=== PATIENT | male | born 1980 | race Caucasian/White ===

== ENCOUNTER 2020-02-23 21:23 | Emergency (ER) | payer MEDICAID, SELFPAY ==
[~2020-02-23] VITALS: Ht 170.2 cm; Wt 80.7 kg
[2020-02-23 21:39] VITALS: Ht 170.2 cm; Wt 80.7 kg
[2020-02-23 23:11] LABS: BASOPHIL % 0.9 % (0-2); PLATELET COUNT 221 x10^3mcL (130-400); RED CELL DISTRIBUTION WIDTH 12.6 % (11.5-14.5)
[2020-02-23 23:16] LABS: CALCIUM 8.5 mg/dL (8.5-10.1); CARBON DIOXIDE 24.6 mmol/L (21-32); CHLORIDE SERUM 106 mmol/L (98-107); CREATININE SERUM 1.1 mg/dL (0.7-1.3); GFR1 > 60 mL/min; GLUCOSE SERUM 105 mg/dL (74-106); POTASSIUM SERUM 4.1 mmol/L (3.5-5.1); SODIUM SERUM 140 mmol/L (136-145)
[2020-02-23 23:19] LABS: ALBUMIN 3.7 g/dL (3.4-5.0); ALKALINE PHOSPHATASE 61 U/L (46-116); ALT/SGPT 32 U/L (16-63); AST/SGOT 17 U/L (15-37); BILIRUBIN TOTAL 0.59 mg/dL (0.20-1.00); TOTAL PROTEIN, SERUM 6.9 g/dL (6.4-8.2)
[2020-02-24 00:27] VITALS: BP 106/58
== END 2020-02-24 00:27 | disposition home or self-care (01) ==
LOC: ED 21:23
PROVIDERS: Emergency Medicine
DX: B34.9 Viral infection, unspecified (principal); R07.89 Other chest pain; F17.210 Nicotine dependence, cigarettes, uncomplicated; Z20.828 Contact with and (suspected) exposure to other viral communicable diseases
CPT/HCPCS: 99406; J1885; U0003